=== PATIENT | female | born 1975 | race Caucasian/White ===

== ENCOUNTER 2018-05-24 21:56 | Emergency (ER) | payer MEDICARE ==
[~2018-05-24] VITALS: Ht 167.6 cm; Wt 88.9 kg
[2018-05-24 21:59] VITALS: BP 162/69
== END 2018-05-24 23:32 | disposition home or self-care (01) ==
LOC: ED 23:26
DX: B35.3 Tinea pedis (principal)
CPT/HCPCS: 82962; 99283

== ENCOUNTER 2018-07-05 14:35 | Emergency (ER) | payer MEDICARE ==
[~2018-07-05] VITALS: Ht 162.6 cm; Wt 93.4 kg
[2018-07-05 15:50] LABS: BASOPHILS % (AUTO) 0 % (0-1); EOSINOPHILS # (AUTO) 0.05 x10^3/uL (0-0.4); EOSINOPHILS % (AUTO) 1 % (1-7); LYMPHOCYTES # (AUTO) 0.55 x10^3/uL (1-3.4); LYMPHOCYTES % (AUTO) 10 % (22-44); MD NO; MEAN CORPUSCULAR HEMOGLOBIN 28.3 pg (27.0-34.8); MEAN CORPUSCULAR HGB CONC 32.9 g/dL (32.4-35.8); MEAN CORPUSCULAR VOLUME 86.2 fL (80-100); MEAN PLATELET VOLUME 8.9 fL (7.4-10.4); MONOCYTES # (AUTO) 0.57 x10^3/uL (0.2-0.8); MONOCYTES % (AUTO) 11 % (2-9); NEUTROPHILS # (AUTO) 4.11 x10^3/uL (1.8-6.8); NEUTROPHILS % (AUTO) 78 % (42-75); PLATELET COUNT 228 x10^3/uL (130-400); RED BLOOD COUNT 4.43 x10^6/uL (3.82-5.3); RED CELL DISTRIBUTION WIDTH 16.1 % (9.6-15.2)
[2018-07-05 16:00] LABS: ALBUMIN 3.6 g/dL (3.4-5.0); ANION GAP 8 mmol/L (5-15); CALCIUM 8.2 mg/dL (8.5-10.1); CHLORIDE 107 mmol/L (98-107)
[2018-07-05] MEDS ORDERED: ONDANSETRON 2MG/ML, 2ML IVPush ONE (16:00)
[2018-07-05 16:04] LABS: ALANINE AMINOTRANSFERASE 20 U/L (12-78); ALKALINE PHOSPHATASE 82 U/L (45-117); BILIRUBIN,TOTAL 0.3 mg/dL (0.2-1.0); CREATININE 0.63 mg/dL (0.55-1.02); TOTAL PROTEIN 7.9 g/dL (6.4-8.2)
[2018-07-05] MEDS ORDERED: SODIUM CHLORIDE FLUSH 10ML SYR IVF ONE (17:00)
--- NOTE | 2018-07-05 17:23 | NUR ---
MASS SPEC: PT TO ROOM FROM MANSOOR CORDERO.
--- NOTE | 2018-07-05 17:42 | NUR ---
PT AMBULATORY TO BATHROOM WITH STEADY GAIT. PT RESTING ON GURNEY, CALL LIGHT IN REACH, ALL CONCERNS ADRESSED.
[2018-07-05 17:54] LABS: HCG UR SG 1.025 (1.003-1.030)
[2018-07-05 18:02] LABS: CULTURE INDICATED? YES; MICROSCOPIC INDICATED
[2018-07-05] MEDS ORDERED: ONDANSETRON 2MG/ML, 2ML ONE (18:47)
[2018-07-05] MEDS ORDERED: MORPHINE SULFATE 4 MG/ML, 1ML ONE (18:47)
[2018-07-05] MEDS ORDERED: morphine SULFATE 10 MG/ML, 1ML IVPush ONE (19:00)
--- NOTE | 2018-07-05 19:02 | NUR ---
PT HANDOFF REPORT TO ALEXANDREA PAYTON.
--- NOTE | 2018-07-05 19:05 | NUR ---
RECEIVED REPORT FROM ANAMIKA LECHUGA. IV PLACED, PT MEDICATED FOR PAIN. PT GOING TO CT AT THIS TIME.
[2018-07-05] MEDS ORDERED: OMNIPAQUE 350 MG/ML, 100ML BOTTLE ONE (19:17)
--- NOTE | 2018-07-05 20:10 | NUR ---
PT UP FOR RECHECK, ALL RESULTS BACK. PT RESTING IN BED, NO STATED NEEDS AT THIS TIME.
[2018-07-05 20:43] VITALS: BP 110/47
== END 2018-07-05 20:44 | disposition home or self-care (01) ==
LOC: ED 17:34
DX: K52.9 Noninfective gastroenteritis and colitis, unspecified (principal); N83.201 Unspecified ovarian cyst, right side; N83.202 Unspecified ovarian cyst, left side; M89.9 Disorder of bone, unspecified
CPT/HCPCS: 36415; 74022; 74177; 80053; 81001; 81025; 83690; 85025; 87086; 96374; 96375; 99284; J2270; J2405; Q9967